=== PATIENT | male | born 1945 | race Caucasian/White ===

== ENCOUNTER → 2023-10-14 10:35 | Outpatient (BNVA) | payer MEDICARE, SELFPAY | PROVIDERS: Visit Provider Nurse Practitioner Family | DX: D48.5 Neoplasm of uncertain behavior of skin (principal); L57.0 Actinic keratosis; L81.4 Other melanin hyperpigmentation; L73.8 Other specified follicular disorders; D22.39 Melanocytic nevi of other parts of face | CPT/HCPCS: 11102; 17000; 99203 ==

== ENCOUNTER → 2023-11-10 13:21 | Outpatient (BNVA) | payer MEDICARE, SELFPAY | PROVIDERS: Visit Provider Dermatology | DX: C44.41 Basal cell carcinoma of skin of scalp and neck (principal); C44.612 Basal cell carcinoma of skin of right upper limb, including shoulder; C44.319 Basal cell carcinoma of skin of other parts of face; D48.5 Neoplasm of uncertain behavior of skin; Z85.828 Personal history of other malignant neoplasm of skin | CPT/HCPCS: 11102; 99213 ==

== ENCOUNTER → 2023-11-19 08:02 | Outpatient (BNVA) | payer MEDICARE, SELFPAY | PROVIDERS: Visit Provider Dermatology | DX: C44.41 Basal cell carcinoma of skin of scalp and neck (principal); C44.612 Basal cell carcinoma of skin of right upper limb, including shoulder | CPT/HCPCS: 13121; 13132; 17311; 17313 ==

== ENCOUNTER → 2023-12-03 07:59 | Outpatient (BNVA) | payer MEDICARE, SELFPAY | PROVIDERS: Visit Provider Dermatology | DX: T81.40XA Infection following a procedure, unspecified, initial encounter (principal); X58.XXXA Exposure to other specified factors, initial encounter; C44.311 Basal cell carcinoma of skin of nose; C44.319 Basal cell carcinoma of skin of other parts of face | CPT/HCPCS: 13132; 17311; 99214 ==

== ENCOUNTER → 2023-12-14 10:15 | Outpatient (BNVA) | payer MEDICARE, SELFPAY | PROVIDERS: Visit Provider Dermatology | DX: C44.311 Basal cell carcinoma of skin of nose (principal); Z85.828 Personal history of other malignant neoplasm of skin | CPT/HCPCS: 99213 ==

== ENCOUNTER → 2023-12-29 14:30 | Outpatient (BNVA) | payer MEDICARE, SELFPAY | PROVIDERS: Visit Provider Dermatology | DX: L90.5 Scar conditions and fibrosis of skin (principal); L57.0 Actinic keratosis; L57.8 Other skin changes due to chronic exposure to nonionizing radiation; Z48.817 Encounter for surgical aftercare following surgery on the skin and subcutaneous tissue | CPT/HCPCS: 17000; 99213 ==

== ENCOUNTER → 2024-04-05 10:47 | Outpatient (BNVA) | payer MEDICARE, SELFPAY | PROVIDERS: Visit Provider Nurse Practitioner Family | DX: L82.1 Other seborrheic keratosis (principal); D69.2 Other nonthrombocytopenic purpura; L57.8 Other skin changes due to chronic exposure to nonionizing radiation; Z08 Encounter for follow-up examination after completed treatment for malignant neoplasm; Z85.828 Personal history of other malignant neoplasm of skin; L57.0 Actinic keratosis | CPT/HCPCS: 17000; 99213 ==

== ENCOUNTER → 2024-11-22 07:59 | Outpatient (BNVA) | payer MEDICARE, SELFPAY | PROVIDERS: Visit Provider Nurse Practitioner Family | DX: L82.1 Other seborrheic keratosis (principal); D69.2 Other nonthrombocytopenic purpura; L57.8 Other skin changes due to chronic exposure to nonionizing radiation; Z08 Encounter for follow-up examination after completed treatment for malignant neoplasm; Z85.828 Personal history of other malignant neoplasm of skin; D48.5 Neoplasm of uncertain behavior of skin; L57.0 Actinic keratosis | CPT/HCPCS: 11102; 17000; 99213 ==

== ENCOUNTER → 2024-12-22 07:56 | Outpatient (BNVA) | payer MEDICARE, SELFPAY | PROVIDERS: Visit Provider Dermatology | DX: C44.319 Basal cell carcinoma of skin of other parts of face (principal); L57.0 Actinic keratosis | CPT/HCPCS: 12052; 13132; 17000; 17311 ==